=== PATIENT | female | born 1950 | race Caucasian/White ===

== ENCOUNTER → 2021-01-03 11:47 | Outpatient (CLI) | payer MEDICARE, MEDICAID, SELFPAY ==
--- NOTE | ~2021-01-03 | DEXA_ITS ---
Bone Density Report Name: Janae Waldrop Age: 70 Sex: Female Ethnicity: White Date of : 1950 Indication: postmenopausal; screening for osteoporosis; parental hip fracture; prior fracture; Referring Provider: Trip Mann Study: Bone densitometry was performed. Exam Date: January 03, 2021 Accession number: [id number] Bone Density: Region BMD T-score Z-score Classification AP Spine (L1-L4) 1.481 3.9 6.1 Normal World Health Organization criteria for BMD impression classify patients as: Normal (T-score at or above -1.0), Osteopenia (T-score between -1.0 and -2.5), or Osteoporosis (T-score at or below -2.5). Clinical Information Provided by Patient: Have had a previous hip or vertebral fracture Has had a low trauma fracture Parent has had a hip fracture Has used the following medications: Vitamin D Patient maximum height was 61 Menopause Age: 57 No regular weight bearing exercise Drinks caffeinated beverages Onset of menses at age 14 Number of children 1 Impression: The patient has normal bone mass. The patient has risk factors, including: parental hip fracture, previous fracture. Discussion: INCREASED RISK OF FRACTURE DUE TO HISTORY OF FRACTURE. The patient's previous fracture puts the patient at high risk of a future fracture. In untreated patients, the risk of osteoporotic fracture increases approximately two-fold for each 1.0 SD decrease in T-score. Low bone density is not the only risk factor for fracture; also consider factors such as patient's age, frailty or poor health, risk of falling, risk of injury, previous osteoporotic fracture, family history of osteoporosis, cigarette smoking, low body weight, etc. Not everyone with a low trauma fracture has osteoporosis; osteomalacia and other metabolic bone disorders should also be considered. Patients who have osteoporosis should be evaluated for specific diseases and conditions (secondary causes) that may cause or contribute to bone loss and fracture risk. National Osteoporosis Foundation (NOF) recommends pharmacologic intervention for patients with a prior hip or vertebral fracture regardless of BMD T-score. The patient should follow a healthful lifestyle (good nutrition with adequate calcium and vitamin D, and appropriate weight-bearing exercise). Follow-Up: Consider a repeat BMD and Vertebral Fracture Assessment (VFA) exam in 2 years or sooner if medically necessary, to reassess this patient's status. Reported by: [facility] on 01/03/2021 12:11:00 PM. Reviewed, dictated and finalized at location Raciel REID
== END ==
PROVIDERS: PCP Internal Medicine; Visit Provider Internal Medicine
DX: M81.0 Age-related osteoporosis without current pathological fracture (principal)
CPT/HCPCS: 77080

== ENCOUNTER → 2021-05-02 08:56 | Outpatient (CLI) | payer MEDICARE, MEDICAID, SELFPAY ==
--- NOTE | ~2021-05-02 | XR_ITS ---
EXAMINATION: XR shoulder LT min 2V EXAM DATE: 05/02/2021 09:24 INDICATION: M25.512 - Pain in left shoulder, no recent injury. States remote injury 40 years ago. TECHNIQUE: The following left shoulder projections obtained: frontal projection with internal rotatio n, frontal projection with external rotation, Grashey, and axillary (4+ views). Correlation is made t o chest x-ray 05/10/2007. FINDINGS: There is severe left glenohumeral osteoarthritis, could most likely primary osteoarthritis (patient states injury was 40 years ago and the glenohumeral joint appears essentially normal on [facility] t x-ray from 2006). There is some flattening of the articular surfaces with bony productive change. M oderate left acromioclavicular primary osteoarthritis. No fracture or dislocation. No radiopaque fore ign bodies identified. The soft tissue is unremarkable. IMPRESSION: Severe left glenohumeral osteoarthritis. Reviewed, dictated and finalized at location A.
--- NOTE | ~2021-05-02 | XR_ITS ---
EXAMINATION: XR lumbar spine 2-3V EXAM DATE: 05/02/2021 09:24 INDICATION: M54.9 - Dorsalgia, unspecified . Pain across low back intermittent after fracture to lumb ar spine at age 29. Left shoulder pain and limited range of motion after remote injury. TECHNIQUE: Lumber spine frontal, lateral, lateral L5-S1 projections for interpretation. There is no prior study for comparison. FINDINGS: There is mild to moderate lumbar levoscoliosis. Moderate to severe disc disease from L1 th rough S1. There is moderate lumbar facet arthropathy. Small to moderate-sized bridging lumbar endplat e osteophytes. There is moderate to severe lumbar facet arthropathy, lower levels more affected. Bila teral hip replacements. Sacrum, sacroiliac joints, sacral arcuate lines are intact. Paraspinal soft t issue is unremarkable. IMPRESSION: 1. Moderate to severe lumbar spondylosis. . Reviewed, dictated and finalized at location A.
== END ==
PROVIDERS: PCP Internal Medicine; Visit Provider Nurse Practitioner
DX: M25.512 Pain in left shoulder (principal); G89.29 Other chronic pain; M54.9 Dorsalgia, unspecified; M19.012 Primary osteoarthritis, left shoulder; M47.816 Spondylosis without myelopathy or radiculopathy, lumbar region
CPT/HCPCS: 72100; 73030

== ENCOUNTER 2022-04-09 11:48 | Outpatient (CLI) | payer OTHER, SELFPAY ==
--- NOTE | ~2022-04-09 | MM_ITS ---
EXAMINATION: MM screening deb BI w juan HISTORY: Screening mammogram TECHNIQUE: Craniocaudal and mediolateral oblique 3-D tomosynthesis images were obtained and synthetic 2-D images were generated. CAD analysis was submitted and interpreted. COMPARISON: 09/04/2016 bilateral screening mammogram BREAST PARENCHYMAL COMPOSITION: There are scattered areas of fibroglandular density. FINDINGS: There is no evidence of suspicious mass, calcification, or architectural distortion to sugg est malignancy in either breast. There has been no suspicious interval change. IMPRESSION: 1. No mammographic evidence of malignancy. 2. Recommend routine screening mammography in one year. BI-RADS Category 1: Negative Reviewed, dictated and finalized at location A.
== END 2022-04-09 11:49 | disposition home or self-care (01) ==
LOC: ANHIMG 11:51
PROVIDERS: PCP Internal Medicine; Visit Provider Internal Medicine
DX: Z12.31 Encounter for screening mammogram for malignant neoplasm of breast (principal)
CPT/HCPCS: 77063; 77067

== ENCOUNTER 2024-04-02 14:08 | Outpatient (CLI) | payer OTHER, SELFPAY ==
--- NOTE | ~2024-04-02 | MM_ITS ---
EXAMINATION: MM screening deb BI w juan HISTORY: Screening TECHNIQUE: Craniocaudal and mediolateral oblique 3-D tomosynthesis images were obtained and synthetic 2-D images were generated. CAD analysis was submitted and interpreted. COMPARISON: Comparison to multiple prior studies sequentially, with oldest reviewed study dated 09/04. BREAST PARENCHYMAL COMPOSITION: Not dense: There are scattered areas of fibroglandular density. FINDINGS: There is no evidence of suspicious mass, calcification, or architectural distortion to sugg est malignancy in either breast. There has been no suspicious interval change. IMPRESSION: 1. No mammographic evidence of malignancy. 2. Recommend routine screening mammography in one year. BI-RADS Category 1: Negative Reviewed, dictated and finalized at location B.
== END 2024-04-02 14:09 | disposition home or self-care (01) ==
LOC: ANHIMG 14:12
PROVIDERS: PCP Internal Medicine; Visit Provider Internal Medicine
DX: Z12.31 Encounter for screening mammogram for malignant neoplasm of breast (principal)
CPT/HCPCS: 77063; 77067

== ENCOUNTER 2024-09-13 12:40 | Outpatient (CLI) | payer OTHER, SELFPAY ==
--- NOTE | ~2024-09-13 | DEXA_ITS ---
Bone Density Report Name: ELIE NOLEN Age: 74 Sex: Female Ethnicity: White Date of : 1950 Indication: postmenopausal; screening for osteoporosis; Referring Provider: MARCELA, ZEINAB Study: Bone densitometry was performed. Exam Date: September 13, 2024 Accession number: [id number] Bone Density: Region BMD T-score Z-score Classification AP Spine(L1-L4) 1.503 4.1 6.6 Normal World Health Organization criteria for BMD impression classify patients as: Normal (T-score at or above -1.0), Osteopenia (T-score between -1.0 and -2.5), or Osteoporosis (T-score at or below -2.5). Previous Exams: Region Exam Age BMD T-score BMD Change BMD Change Date g/cm2 vs Baseline vs Previous AP Spine (L1-L4) 09/13/2024 74 1.503 4.1 -0.077 (-4.9%) -0.077 (-4.9%) 09/04/2016 66 1.580 4.8 *Denotes significance at 95% confidence level, LSC for AP Spine = 0.022 g/cm2 Clinical Information Provided by Patient: Has used the following medications: Vitamin D, Calcium Patient maximum height was 61 Menopause Age: 49 Drinks caffeinated beverages Onset of menses at age 12 Number of children 1 Impression: The patient has normal bone mass. The BMD for the AP Spine (L1-L4) decreased, changing by -4.9% since the last DXA exam. Discussion: LOW RISK OF FRACTURE; BONE DENSITY IS WELL ABOVE THE MINIMUM DESIRABLE LEVEL AND ABOVE AVERAGE FOR AGE AND SEX AT ALL SKELETAL SITES TESTED. This person's bone density is above expected limits for age and sex. This is rarely clinically significant, but should be pursued if there are significant musculoskeletal complaints. The patient should follow a healthful lifestyle (good nutrition with adequate calcium and vitamin D, and appropriate weight-bearing exercise). Follow-Up: Consider repeating this study in 3 to 4 years to reassess this patient's status, or sooner if there is some new clinical indication. Reported by: DB on 09/13/2024 1:25:00 PM. Reviewed, dictated and finalized at location AMai REID
== END 2024-09-13 12:41 | disposition home or self-care (01) ==
LOC: ANHIMG 12:41
PROVIDERS: PCP Internal Medicine; Visit Provider Internal Medicine
DX: Z13.820 Encounter for screening for osteoporosis (principal); Z78.0 Asymptomatic menopausal state
CPT/HCPCS: 77080

== ENCOUNTER 2025-06-15 09:46 | Outpatient (CLI) | payer OTHER, SELFPAY ==
--- NOTE | ~2025-06-15 | MM_ITS ---
EXAMINATION: MM screening deb BI w juan HISTORY: Screening TECHNIQUE: Craniocaudal and mediolateral oblique 3-D tomosynthesis images were obtained and synthetic 2-D images were generated. CAD analysis was submitted and interpreted. COMPARISON: Comparison to multiple prior studies sequentially, with oldest reviewed study dated , 09/04/2016 BREAST PARENCHYMAL COMPOSITION: There are scattered areas of fibroglandular density. FINDINGS: There is no evidence of suspicious mass, calcification, or architectural distortion to suggest malignancy in either breast. IMPRESSION: 1. No mammographic evidence of malignancy. 2. Recommend routine screening mammography in one year. BI-RADS Category 1: Negative Reviewed, dictated and finalized at location B.
--- OUTSIDE RECORDS SUMMARY | 2025-06-15 11:21 | XMS_ITS | Clinical Summary ---
Author Organization 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 255 g 0 6 Active Social History Tobacco Use Types Packs/Day Years Used Date Smoking Tobacco: Never Assessed Comments Unknown Sex and Gender Information Value Date Recorded Sex Assigned at Not on file Legal Sex Female 4:08 PM [employer] Gender Identity Not on file Sexual Orientation Not on file Plan of Treatment Health Maintenance Due Date Last Done Comments Hepatitis C Virus (HCV) Screening 1950 TdaP Immunization 1950 Cologuard 1994 Colonoscopy 1994 Colorectal Cancer Screening 1994 Immunochemical Fecal Occult Blood 1994 Pneumococcal Immunization (5 0+ years) (1 of 1 - PCV) 1999 Zoster Immunization (1 of 2) 1999 Respiratory Syncytial Virus (RSV) Immunization (Adult) (1 - 1-dose 75+ series) 2024 Influenza Immunization (#1) 2025 SARS-COV-2 Immunization (2023- season) 2025 Hepatitis B Immunization Aged Out No longer eligible based on patient's age to complete this topic Human Papillomavirus (HPV) Immunization Aged Out No longer eligible b ased on patient's age to complete this topic Meningococcal Immunization (ACWY) Aged Out No longer eligible based on patient's age to complete this topic Rotavirus Immunization Aged Out No lo nger eligible based on patient's age to complete this topic Insurance MEDICARE [place]ICAID [place] Care Teams Upper Lining Cementer Relationship Specialty Start Date End Date Gabriele Gibson MD [address] [place] [address] PCP - General Internal Medicine 08/07/16
== END 2025-06-15 09:47 | disposition home or self-care (01) ==
LOC: ANHFOHIMG 09:49
PROVIDERS: PCP Internal Medicine; Visit Provider Internal Medicine
DX: Z12.31 Encounter for screening mammogram for malignant neoplasm of breast (principal)
CPT/HCPCS: 77063; 77067